=== PATIENT | female | born 1945 | race Caucasian/White ===

== ENCOUNTER 2017-08-05 14:18 | Outpatient (CLI) | payer MEDICARE ==
--- NOTE | 2017-08-12 11:37 | MMO ---
BILATERAL SCREENING MAMMOGRAM: Date: 08/05/2017 HISTORY: A 71-year-old female. Routine screening mammography. COMPARISON: 12/22/2013, 07/03/2012, 06/29/2012. TECHNIQUE: CC and MLO views of both breasts are submitted for interpretation. This patient's mammogram is reviewed with the assistance of computer-aided detection. FINDINGS: The breasts are composed of scattered fibroglandular tissue. In the right breast, no suspicious dominant mass, architectural distortion, or suspicious calcificati ons. In the left breast, there is an increased asymmetry in the lateral left areolar region only appreciat ed on the CT projection. Benign-appearing calcifications in the left breast are also identified. IMPRESSION: BIRADS 0: Incomplete evaluation. Additional imaging required for final evaluation and assessment. RECOMMENDATION: Spot views of the left breast in the CC projection. Mediolateral views should be performed. Ultraso und if asymmetry persists. POS: [facility]
== END 2017-08-05 14:19 | disposition home or self-care (01) ==
LOC: SCSMAMMO 14:18
PROVIDERS: ATTEND Family Medicine
DX: Z12.31 Encounter for screening mammogram for malignant neoplasm of breast (principal)
CPT/HCPCS: 77067; G0202

== ENCOUNTER 2017-09-02 08:00 | Outpatient (CLI) | payer MEDICARE | END 2017-09-02 08:01 | disposition home or self-care (01) | LOC: BICMAMMO 08:00 | PROVIDERS: ATTEND Family Medicine | DX: R92.2 Inconclusive mammogram (principal) | CPT/HCPCS: 76642; G0206; G0279 ==

== ENCOUNTER 2018-03-31 11:57 | Outpatient (CLI) | payer MEDICARE ==
--- NOTE | 2018-03-31 13:52 | RAD ---
KUB: History: Kidney stones. FINDINGS: Comparison made with exam of 10-25-15. Bilateral renal calculi are again seen. The calculus in the left ureter at L3 is not visualized on e current study. There are post op changes in the pelvis. Pelvic phleboliths are re-demonstrated. IMPRESSION: Bilateral renal calculi. POS: [facility]
== END 2018-03-31 11:58 | disposition home or self-care (01) ==
LOC: SCSRAD 11:57
PROVIDERS: ATTEND Urology
DX: N20.0 Calculus of kidney (principal)
CPT/HCPCS: 74018